=== PATIENT | female | born 1970 | race Caucasian/White ===

== ENCOUNTER 2020-09-30 11:14 | Emergency (ER) | payer OTHER ==
[~2020-09-30] VITALS: Ht 157.5 cm; Wt 71.2 kg
[2020-09-30 12:11] VITALS: BP 129/88; Ht 157.5 cm; Wt 71.2 kg
== END 2020-09-30 13:17 | disposition home or self-care (01) ==
LOC: ED 11:14
DX: H92.02 Otalgia, left ear (principal); Z20.828 Contact with and (suspected) exposure to other viral communicable diseases; Z88.2 Allergy status to sulfonamides; Z90.49 Acquired absence of other specified parts of digestive tract; Z90.89 Acquired absence of other organs
CPT/HCPCS: U0003

== ENCOUNTER 2020-12-25 15:37 | Emergency (ER) | payer OTHER ==
[~2020-12-25] VITALS: Ht 157.5 cm; Wt 72.6 kg
[2020-12-25 15:44] VITALS: Ht 157.5 cm; Wt 72.6 kg
[2020-12-25] MEDS ORDERED: ULTRAM50 MG PO (19:17)
[2020-12-25] MEDS ORDERED: IBU600 M2 PO (19:17)
[2020-12-25] MEDS ORDERED: BACLOFEN10 MG PO (19:17)
[2020-12-25 19:33] VITALS: BP 129/89
== END 2020-12-25 19:33 | disposition home or self-care (01) ==
LOC: ED 15:37
DX: S13.4XXA Sprain of ligaments of cervical spine, initial encounter (principal); S23.3XXA Sprain of ligaments of thoracic spine, initial encounter; R51.9 Headache, unspecified; Z90.49 Acquired absence of other specified parts of digestive tract; Z90.89 Acquired absence of other organs; Z98.890 Other specified postprocedural states; Z88.2 Allergy status to sulfonamides; V89.2XXA Person injured in unspecified motor-vehicle accident, traffic, initial encounter; Y93.I9 Activity, other involving external motion; Y92.411 Interstate highway as the place of occurrence of the external cause; Y99.8 Other external cause status
CPT/HCPCS: 72072